=== PATIENT | female | born 1945 | race African-American/Black ===

== ENCOUNTER 2017-12-24 13:16 | Emergency (ER) | payer MEDICARE, OTHER ==
[~2017-12-24] VITALS: Ht 167.6 cm; Wt 105.0 kg
[2017-12-24] MEDS ORDERED: IBUPROFEN 800MG TABLET PO ONE (15:00)
[2017-12-24 15:16] LABS: BASOPHILS % 0.4 % (0.0-2.0); EOSINOPHILS % 1.7 % (0.0-5.0); HEMATOCRIT. 31.1 % (36.0-48.0); HEMOGLOBIN. 10.1 g/dL (12.0-16.0); LYMPHOCYTES % 17.7 % (20.0-50.0); MEAN CORPUSCULAR HEMOGLOBIN 27.5 pg (28.0-32.0); MEAN CORPUSCULAR VOLUME 84.2 fL (81.0-99.0); MEAN PLATELET VOLUME 7.6 fl (7.4-10.4); MONOCYTES % 9.2 % (2.0-8.0); PLATELET 228 x1000/uL (130-400); RED BLOOD CELL COUNT 3.69 mill/uL (4.2-5.4); RED CELL DISTRIBUTION WIDTH 14.3 % (11.6-14.6)
[2017-12-24 15:22] LABS: CHLORIDE 105 mEq/L (98-107)
[2017-12-24 15:23] LABS: PROTHROMBIN TIME 10.4 sec (9.4-11.6)
[2017-12-24 15:30] LABS: CREATINE KINASE 115 IU/L (26-192)
[2017-12-24 16:52] LABS: CLARITY URINE CLEAR (CLEAR); COLOR URINE YELLOW (YELLOW); KETONES URINE NEGATIVE (NEGATIVE); LEUKOCYTE ESTERASE URINE NEGATIVE (NEGATIVE); NITRITE URINE NEGATIVE (NEGATIVE); OCCULT BLOOD URINE NEGATIVE (NEGATIVE); PROTEIN URINE 2+ (NEGATIVE); SPECIFIC GRAVITY URINE 1.016 (1.005-1.030)
[2017-12-24 17:13] VITALS: BP 158/52
[2017-12-24] MEDS ORDERED: DIAZEPAM 5 MG TABLET PO ONE (17:15)
== END 2017-12-24 17:31 | disposition home or self-care (01) ==
LOC: ER 13:16
DX: M62.838 Other muscle spasm (principal); M54.2 Cervicalgia; I10 Essential (primary) hypertension; Z88.0 Allergy status to penicillin; R79.1 Abnormal coagulation profile
CPT/HCPCS: 36415; 70490; 71045; 80053; 81003; 82550; 83690; 83880; 84484; 85025; 85610; 85730; 93005; 99285

== ENCOUNTER 2020-02-19 16:53 | Emergency (ER) | payer OTHER ==
[~2020-02-19] VITALS: Ht 167.6 cm; Wt 90.0 kg
[2020-02-19 16:54] VITALS: BP 137/65
[2020-02-19] MEDS ORDERED: IBUPROFEN 600MG TABLET PO ONE (18:15)
== END 2020-02-19 18:29 | disposition home or self-care (01) ==
LOC: ER 16:53
DX: M25.542 Pain in joints of left hand (principal); M25.541 Pain in joints of right hand; I10 Essential (primary) hypertension; E78.5 Hyperlipidemia, unspecified; M19.90 Unspecified osteoarthritis, unspecified site; Z88.0 Allergy status to penicillin; Z98.890 Other specified postprocedural states
CPT/HCPCS: 99282

== ENCOUNTER 2021-07-30 19:30 | Inpatient (IN) | payer OTHER ==
[~2021-07-30] VITALS: Ht 160 cm; Wt 93.7 kg
[2021-07-30 20:37] LABS: CLARITY URINE CLEAR (CLEAR); COLOR URINE YELLOW (YELLOW); KETONES URINE NEGATIVE (NEGATIVE); LEUKOCYTE ESTERASE URINE NEGATIVE (NEGATIVE); NITRITE URINE NEGATIVE (NEGATIVE); OCCULT BLOOD URINE NEGATIVE (NEGATIVE); PROTEIN URINE 3+ (NEGATIVE); SPECIFIC GRAVITY URINE 1.014 (1.005-1.030); UROBILINOGEN URINE 0.2 E.U./dL (0.2-1.0)
[2021-07-30 20:38] LABS: BASOPHILS % 0.5 % (0.0-2.0); EOSINOPHILS % 0.2 % (0.0-5.0); HEMATOCRIT. 34.4 % (36.0-48.0); HEMOGLOBIN. 10.9 g/dL (12.0-16.0); LYMPHOCYTES % 23.3 % (20.0-50.0); MEAN CORPUSCULAR HEMOGLOBIN 26.9 pg (28.0-32.0); MEAN PLATELET VOLUME 8.4 fl (7.4-10.4); MONOCYTES % 10.2 % (2.0-8.0); NEUTROPHILS % 65.8 % (40.0-76.0); PLATELET 246 x1000/uL (130-400); RED BLOOD CELL COUNT 4.04 mill/uL (4.2-5.4); RED CELL DISTRIBUTION WIDTH 16.8 % (11.6-14.6)
[2021-07-30 20:40] LABS: CHLORIDE 113 mEq/L (98-107)
[2021-07-30 20:44] LABS: ETHANOL BLOOD < 10 mg/dL
[2021-07-30 20:52] LABS: *BARBITURATES SCREEN URINE NEGATIVE (NEGATIVE)
[2021-07-30 20:54] LABS: *BENZODIAZEPINES SCREEN URINE NEGATIVE (NEGATIVE); *COCAINE SCREEN URINE NEGATIVE (NEGATIVE); CANNABINOID URINE SCREEN NEGATIVE (NEGATIVE); METHADONE URINE SCREEN NEGATIVE (NEGATIVE); OPIATES URINE SCREEN NEGATIVE (NEGATIVE); PHENCYCLIDINE URINE SCREEN NEGATIVE (NEGATIVE)
[2021-07-30 20:55] LABS: *AMPHETAMINES SCREEN URINE NEGATIVE (NEGATIVE)
[2021-07-30] MEDS ORDERED: CALCIUM CHLORIDE 1GM/10ML SYR IV NR (21:15)
[2021-07-30] MEDS ORDERED: DEXTROSE 50% WATER 50ML SYRINGE IV NR (21:15)
[2021-07-30] MEDS ORDERED: SODIUM CHLORIDE 0.9% 1,000 ML IV ONE (21:15)
[2021-07-30] MEDS ORDERED: SODIUM POLYSTYRENE SULFONATE 15 G/60 ML BOT PO NR (21:15)
[2021-07-30] MEDS ORDERED: INSULIN REGULAR (HUMULIN R) 300UNITS/3ML VIAL IV NR (21:15)
[2021-07-31] MEDS ORDERED: DEXTROSE 50% WATER 50ML SYRINGE IV ONE (01:00)
[2021-07-31] MEDS ORDERED: DEXTROSE 50% WATER 50ML SYRINGE IV SCH (06:30)
[2021-07-31 15:50] VITALS: BP 190/88
[2021-07-31 16:09] VITALS: BP 190/88
[2021-07-31] MEDS ORDERED: ONDANSETRON HCL 4MG/2ML INJ IV PRN (18:15)
[2021-07-31] MEDS ORDERED: MAGNESIUM/ALUMINUM HYDROXIDE/SIMETHICONE 30ML UDC PO PRN (18:15)
[2021-07-31] MEDS ORDERED: ACETAMINOPHEN 325MG TABLET PO PRN ×2 (18:15)
[2021-07-31] MEDS ORDERED: DEXTROSE 50% WATER 50ML SYRINGE IV PRN (18:15)
[2021-07-31] MEDS ORDERED: DIPHENHYDRAMINE 50MG/ML VIAL IV PRN (18:15)
[2021-07-31] MEDS ORDERED: HYDRALAZINE 20MG/ML VIAL IV PRN (18:15)
[2021-07-31] MEDS ORDERED: ZOLPIDEM TARTRATE 5MG TABLET PO PRN (18:15)
[2021-07-31] MEDS ORDERED: CLONIDINE 0.1MG TABLET PO PRN (18:15)
[2021-07-31] MEDS: SODIUM CHLORIDE 0.45% 1,000 ML IV SCH (18:42)
[2021-07-31 20:00] VITALS: BP 135/96
[2021-07-31] MEDS: AMLODIPINE 5MG TABLET PO SCH (20:20)
[2021-07-31] MEDS: INSULIN LISPRO 100 UNITS/ML SUBCUT SCH (20:26)
[2021-07-31] MEDS: BLOOD SUGAR DIAGNOSTIC STRIP TEST SCH (20:26)
[2021-07-31] MEDS ORDERED: LOSA100T3 MT (20:36)
[2021-07-31] MEDS ORDERED: ATOR40TA70 MT (20:36)
[2021-07-31] MEDS ORDERED: TOP100 MT (20:36)
[2021-07-31] MEDS ORDERED: ERGO1250 (20:36)
[2021-07-31] MEDS ORDERED: ATEN-177 MT (20:36)
[2021-07-31] MEDS ORDERED: ENOXAPARIN 40MG/0.4ML SYR SUBCUT SCH (21:00)
[2021-08-01] VITALS: BP 141/70
[2021-08-01 04:00] VITALS: BP 174/78
[2021-08-01] MEDS: SODIUM CHLORIDE 0.45% 1,000 ML IV SCH ×2 (04:12→14:15)
[2021-08-01 06:52] LABS: BASOPHILS % 0.5 % (0.0-2.0); EOSINOPHILS % 0.9 % (0.0-5.0); HEMATOCRIT. 31.3 % (36.0-48.0); HEMOGLOBIN. 10.1 g/dL (12.0-16.0); LYMPHOCYTES % 29.1 % (20.0-50.0); MEAN CORPUSCULAR HEMOGLOBIN 27.3 pg (28.0-32.0); MEAN CORPUSCULAR VOLUME 84.4 fL (81.0-99.0); MEAN PLATELET VOLUME 8.6 fl (7.4-10.4); MONOCYTES % 11.4 % (2.0-8.0); NEUTROPHILS % 58.1 % (40.0-76.0); PLATELET 205 x1000/uL (130-400); RED BLOOD CELL COUNT 3.71 mill/uL (4.2-5.4); RED CELL DISTRIBUTION WIDTH 16.6 % (11.6-14.6)
[2021-08-01] MEDS: BLOOD SUGAR DIAGNOSTIC STRIP TEST SCH ×3 (07:02→17:01)
[2021-08-01] MEDS: INSULIN LISPRO 100 UNITS/ML SUBCUT SCH ×3 (07:31→17:02)
[2021-08-01 08:10] VITALS: BP 168/78
[2021-08-01] MEDS: AMLODIPINE 5MG TABLET PO SCH (08:49)
[2021-08-01 11:40] VITALS: BP 104/74
[2021-08-01 16:02] VITALS: BP 144/80
[2021-08-01 16:22] VITALS: BP 144/80
== END 2021-08-01 19:20 | disposition home or self-care (01) | DRG 682 ==
LOC: ER 19:30 → MICUSO 21:05 → 6WST 07-31 15:36
PROVIDERS: ADMIT Internal Medicine; ATTEND Internal Medicine
DX: N17.9 Acute kidney failure, unspecified (principal); G93.41 Metabolic encephalopathy; Z20.822 Contact with and (suspected) exposure to COVID-19; E11.22 Type 2 diabetes mellitus with diabetic chronic kidney disease; E11.649 Type 2 diabetes mellitus with hypoglycemia without coma; E66.01 Morbid (severe) obesity due to excess calories; E78.00 Pure hypercholesterolemia, unspecified; E78.5 Hyperlipidemia, unspecified; E87.5 Hyperkalemia; I12.9 Hypertensive chronic kidney disease with stage 1 through stage 4 chronic kidney disease, or unspecified chronic kidney disease; N18.9 Chronic kidney disease, unspecified; Z88.0 Allergy status to penicillin; Z68.36 Body mass index [BMI] 36.0-36.9, adult
CPT/HCPCS: 36415; 80048; 80053; 80305; 80320; 81003; 82962; 83735; 84484; 85025; 87426; 93005; 99291; J1650; J1815; J3490; G0480

== ENCOUNTER 2023-02-22 15:26 | Emergency (ER) | payer MEDICARE, OTHER ==
[~2023-02-22] VITALS: Ht 160 cm; Wt 86.0 kg
[~2023-02-22 15:26] MED LIST: ATEN-177 MT; ATOR40TA70 MT; ERGO1250; LOSA100T4 MT; TOP100 MT
[2023-02-22 15:41] VITALS: O2SAT 100
[2023-02-22 16:37] LABS: BASOPHILS % 0.5 % (0.0-2.0); EOSINOPHILS % 1.5 % (0.0-5.0); HEMATOCRIT. 31.5 % (36.0-48.0); LYMPHOCYTES % 33.5 % (20.0-50.0); MEAN CORPUSCULAR HEMOGLOBIN 27.5 pg (28.0-32.0); MEAN CORPUSCULAR HGB CONC 31.8 g/dL (31.0-37.0); MEAN CORPUSCULAR VOLUME 86.5 fL (81.0-99.0); MEAN PLATELET VOLUME 7.9 fl (7.4-10.4); MONOCYTES % 12.9 % (2.0-8.0); NEUTROPHILS % 51.6 % (40.0-76.0); PLATELET 200 x1000/uL (130-400); RED BLOOD CELL COUNT 3.64 mill/uL (4.2-5.4); RED CELL DISTRIBUTION WIDTH 15.3 % (11.6-14.6); WHITE BLOOD COUNT 5.1 x1000/uL (4.5-11.0)
[2023-02-22 16:52] LABS: CHLORIDE 116 mEq/L (98-107); INDEX HEMOLYSI 1 (1-3); INDEX ICTERIC 1 (1-4); INDEX LIPEMIC 1 (1-3); POTASSIUM 5.1 mEq/L (3.5-5.1); SODIUM 142 mEq/L (136-145)
[2023-02-22 17:03] LABS: CALCIUM 9.2 mg/dL (8.5-10.1); CARBON DIOXIDE 23 mEq/L (21-32); CREATININE 3.1 mg/dL (0.6-1.3); GLUCOSE 84 mg/dL (70-105); TROPONIN I HIGH SENSITIVITY 8 ng/L (<54); UREA NITROGEN BLOOD 53 mg/dL (7-21)
[2023-02-22] MEDS ORDERED: LOSARTAN POTASSIUM 25 MG TABLET PO ONE (17:30)
[2023-02-22] MEDS ORDERED: HYDROCHLOROTHIAZIDE 25MG TABLET PO ONE ×2 (17:30→18:30)
[2023-02-22 18:15] VITALS: BP 208/106; PULSE 88; RESP 18; TEMP 98.7
[2023-02-22] MEDS ORDERED: HYDRALAZINE HCL 25MG TABLET PO ONE (18:30)
== END 2023-02-22 19:53 | disposition home or self-care (01) ==
LOC: ER 15:26
DX: R00.2 Palpitations (principal); I10 Essential (primary) hypertension; E78.00 Pure hypercholesterolemia, unspecified; E11.9 Type 2 diabetes mellitus without complications; Z88.0 Allergy status to penicillin
CPT/HCPCS: 36415; 71045; 80048; 84484; 85025; 93005; 99285